=== PATIENT | female | born 1990 | race African-American/Black ===

== ENCOUNTER 2023-01-01 15:16 | Emergency (ER) | payer MEDICAID, OTHER ==
[~2023-01-01] VITALS: Ht 160 cm; Wt 91.0 kg
[2023-01-01] MEDS ORDERED: IPRATROPIUM BROMIDE (0.02%) 0.5MG/2.5ML NEB HHN STA (15:20)
[2023-01-01] MEDS ORDERED: PREDNISONE 20MG TABLET PO STA (15:20)
[2023-01-01 15:27] VITALS: BP 140/78; TEMP 98.3
[2023-01-01 16:00] VITALS: PULSE 105; RESP 24; O2SAT 100
[2023-01-01] MEDS: ALBUTEROL (0.083%) 2.5MG/3ML NEB HHN SCH ×3 (16:00→16:50)
[2023-01-01] MEDS ORDERED: ALBU6.7H15 INH (17:07)
[2023-01-01] MEDS ORDERED: ALBU2.5V13 NEB (17:07)
[2023-01-01] MEDS ORDERED: P50 MT (17:07)
[2023-01-01] MEDS ORDERED: PREDNISONE 20MG TABLET PO NR (17:30)
== END 2023-01-01 17:25 | disposition home or self-care (01) ==
LOC: ER 15:16
DX: J45.901 Unspecified asthma with (acute) exacerbation (principal)
CPT/HCPCS: 81025; 94640; 99283; J7512; Z7610 ×3